=== PATIENT | female | born 1950 | race Caucasian/White ===

== ENCOUNTER 2017-06-16 22:08 | Observation (INO) | payer MEDICARE, OTHER ==
[2017-06-16] MEDS ORDERED: HYDROmorphone 0.5 MG/0.5 ML Syringe IVPUSH ONE (23:22)
--- NOTE | 2017-06-17 00:34 | EDM.PDOC ---
ED HPI GENERAL MEDICAL PROBLEM - General Chief Complaint: Lower Extremity Injury/Pain Stated Complaint: BY AMBULANCE- [facility]KLE Time Seen by Provider: 06/16/17 22:45 Source of Information: Reports: Patient, RN, RN Notes Reviewed History Limitations: Reports: No Limitations - History of Present Illness INITIAL COMMENTS - FREE TEXT/NARRATIVE: Pt presents to ER per [facility] with c/o left shoulder, left hip, and left ankle pain after 2 falls on the ice today. She states the first fall was this afternoon and she fell directly on her bottom. She states later in the day she got stuck with her car and got out of the car and slipped and fell under the car. She states she felt her ankle was turned in an odd angle and was very painful. She rates the pain of the ankle 10/10, left hip 8/10, and left shoulder 7/10. She denies hitting her head or loss of conciousness. Onset: Today, Sudden Location: Reports: Back, Upper Extremity, Left, Lower Extremity, Left Quality: Reports: Throbbing Severity: Moderate Improves with: Reports: None Worsens with: Reports: None Associated Symptoms: Reports: No Other Symptoms Left Lower Ankle Pain Score (Numeric/FACES): 9 - Related Data Allergies Allergy/AdvReac Type Severity Reaction Status Date / Time minocycline [Minocycline] Allergy Intermediate Rash Verified 05/11/17 15:53 bee pollen [Bee Pollen] Allergy Anaphylactic Verified 05/11/17 15:53 Shock hydrocodone Allergy Rash Verified 05/11/17 15:53 ibuprofen Allergy Rash Verified 05/11/17 15:53 oxycodone [Oxycodone] Allergy Rash Verified 05/11/17 15:53 Home Meds: Home Meds Esomeprazole Magnesium [Nexium] 40 mg PO BID 05/21/13 [History] Fluticasone Propionate [Flonase] 2 sprays NASBOTH DAILY 05/21/13 [History] Fosinopril Sodium 10 mg PO DAILY 05/21/13 [History] Furosemide 40 mg PO DAILY 05/21/13 [History] Levothyroxine Sodium 150 mcg PO DAILY 05/21/13 [History] Sucralfate [Carafate] 1 gm PO TID 05/21/13 [History] Temazepam [Restoril] 15 mg PO BEDTIME PRN 05/21/13 [History] atorvaSTATin Calcium [Atorvastatin Calcium] 40 mg PO DAILY 05/21/13 [History] metFORMIN [Glucophage] 1,000 mg PO BIDM 05/21/13 [History] traZODone HCl [Trazodone HCl] 250 mg PO BEDTIME 05/21/13 [History] predniSONE 5 mg PO DAILY 02/28/15 [History] traMADol HCl [Tramadol HCl] 50 - 100 mg PO Q6H PRN 07/17/15 [History] Cholecalciferol (Vitamin D3) [Vitamin D3] 10,000 unit PO DAILY 07/18/15 [History ] Calcium Carbonate [Calcium] 500 mg PO BID 01/27/16 [History] DULoxetine HCl [Duloxetine HCl] 60 mg PO BID 01/27/16 [History] buPROPion HCl [Wellbutrin Xl] 300 mg PO DAILY 01/27/16 [History] Gabapentin [Neurontin] 600 mg PO QID 05/26/16 [History] Albuterol Sulfate [Proair Hfa] 1 - 2 puff INH Q4H PRN 05/11/17 [History] Magnesium Oxide 500 mg PO BID 05/11/17 [History] Torsemide [Torsemide] 20 mg PO DAILY 05/11/17 [History] Insulin Isophane NPH, Human [NovoLIN N] 10 units SQ BID 06/16/17 [History] Losartan [Cozaar] 25 mg PO DAILY 06/16/17 [History] Past Medical History - Past Health History Medical/Surgical History: Denies Medical/Surgical History HEENT History: Reports: Allergic Rhinitis Cardiovascular History: Reports: High Cholesterol, Hypertension Respiratory History: Reports: Asthma Gastrointestinal History: Reports: Other (See Below) Other Gastrointestinal History: gastroparesis Genitourinary History: Reports: Urinary Incontinence Musculoskeletal History: Reports: Arthritis, Osteoporosis, RA Psychiatric History: Reports: Depression Endocrine/Metabolic History: Reports: Diabetes, Type II, Hypoparathyroidism Hematologic History: Reports: Other (See Below) Other Hematologic History: vit d deficency - Infectious Disease History Infectious Disease History: Reports: MRSA - Past Surgical History Neurological Surgical History: Reports: Other (See Below) Social & Family History - Family History Family Medical History: Noncontributory - Tobacco Use Smoking Status *Q: Never Smoker Second Hand Smoke Exposure: No - Caffeine Use Caffeine Use: Reports: Tea - Alcohol Use Days Per Week of Alcohol Use: 0 - Recreational Drug Use Recreational Drug Use: No Drug Use in Last 12 Months: No Review of Systems - Review of Systems Review Of Systems: ROS reveals no pertinent complaints other than HPI. ED EXAM, GENERAL - Physical Exam Exam: See Below Exam Limited By: No Limitations General Appearance: Alert, WD/WN, Moderate Distress Eye Exam: Bilateral Eye: EOMI, Normal Inspection, PERRL Ears: Normal External Exam, Hearing Grossly Normal Nose: Normal Inspection Throat/Mouth: Normal Inspection, Normal Voice, No Airway Compromise Head: Atraumatic, Normocephalic Neck: Normal Inspection, Supple, Non-Tender, Full Range of Motion Respiratory/Chest: No Respiratory Distress, Lungs Clear, Normal Breath Sounds, No Accessory Muscle Use, Chest Non-Tender Cardiovascular: Normal Peripheral Pulses, Regular Rate, Rhythm, No Gallop, No JVD, No Murmur, No Rub Peripheral Pulses: 2+: Radial (L), Radial (R), Dorsalis Pedis (L), Dorsalis Pedis (R) GI/Abdominal: Normal Bowel Sounds, Soft, Non-Tender, No Organomegaly, No Distention, No Abnormal Bruit, No Mass (Female) Exam: Deferred Rectal (Female) Exam: Deferred Back Exam: Normal Inspection, Full Range of Motion Extremities: Normal Inspection, Leg Pain (left), Limited Range of Motion (left shoulder, left leg). No: No Pedal Edema (mild pedal edema, significant lymph edema bilaterally) Neurological: Alert, Oriented, CN II-XII Intact, Normal Cognition, Normal Reflexes, No Motor/Sensory Deficits Psychiatric: Normal Affect, Normal Mood Skin Exam: Warm, Dry, Intact, Normal Color, No Rash Lymphatic: No Adenopathy Course - Vital Signs Last Recorded V/S: Last Vital Signs Temp 98.6 F 06/16/17 22:23 Pulse 62 06/16/17 22:23 Resp 16 06/16/17 22:23 BP 145/64 H 06/16/17 22:23 Pulse Ox 99 06/16/17 22:23 - Orders/Labs/Meds Meds: Medications Discontinued Medications Generic Name Dose Route Start Last Admin Trade Name Freq PRN Reason Stop Dose Admin Hydromorphone HCl 0.5 mg 06/16/17 23:22 06/17/17 00:19 Dilaudid IVPUSH 06/16/17 23:23 0.5 mg ONETIME ONE Administration - Radiology Interpretation Free Text/Narrative:: Left ankle: Probable nondisplaced fracture of the distal fibula. Ankle mortise is in good alignment Left hip with pelvis: Trochanteric bursitis left hip, no sign of fracture or dislocation Left shoulder: Normal left shoulder x-rays See rad reports Departure - Departure Time of Disposition: 00:39 Disposition: Admitted As Inpatient 65 Condition: Fair Clinical Impression: Bursitis of left hip Qualifiers: Hip bursitis location: trochanteric bursitis Qualified Code(s): M70.62 - Trochanteric bursitis, left hip Fracture of left fibula Qualifiers: Encounter type: initial encounter Fibula location: distal Fracture type: closed Fracture morphology: unspecified fracture morphology Qualified Code(s): S82.832A - Other fracture of upper and lower end of left fibula, initial encounter for closed fracture Fall Qualifiers: Encounter type: initial encounter Qualified Code(s): W19.XXXA - Unspecified fall, initial encounter - Discharge Information Forms: ED Department Discharge
[2017-06-17] MEDS ORDERED: HYDROmorphone 0.5 MG/0.5 ML Syringe IVPUSH PRN (00:50)
[2017-06-17] MEDS ORDERED: Albuterol 6.7 GM Inhaler INH PRN (00:51)
[2017-06-17] MEDS ORDERED: Temazepam 15 MG Cap PO PRN (00:52)
[2017-06-17] MEDS ORDERED: Sodium Chloride 0.9% 10 ML Syringe FLUSH PRN (01:02)
--- NOTE | 2017-06-17 01:02 | PCM.HP ---
H&P History of Present Illness - General Date of Service: 06/17/17 Source of Information: Patient - History of Present Illness Initial Comments - Free Text/Narative: 66-year-old lady with a history of diabetes, hypertension, polymyalgia rheumatica. She has chronic pain on the multiple medications. The patient fell twice today. Appear that she suffered an left distal fibular fracture. She has moderate to severe pain in the left distal leg. This is since the fall. Worse with movement and touch. No associated additional swelling although she has chronic lower extremity swelling. The falling episodes appeared that they have been purely accident. No apparent loss of consciousness. Left Lower Ankle Pain Score (Numeric/FACES): 9 - Related Data Allergies/Adverse Reactions: Allergies Allergy/AdvReac Type Severity Reaction Status Date / Time minocycline [Minocycline] Allergy Intermediate Rash Verified 05/11/17 15:53 bee pollen [Bee Pollen] Allergy Anaphylactic Verified 05/11/17 15:53 Shock hydrocodone Allergy Rash Verified 05/11/17 15:53 ibuprofen Allergy Rash Verified 05/11/17 15:53 oxycodone [Oxycodone] Allergy Rash Verified 05/11/17 15:53 Home Medications: Home Meds Esomeprazole Magnesium [Nexium] 40 mg PO BID 05/21/13 [History] Fluticasone Propionate [Flonase] 2 sprays NASBOTH DAILY 05/21/13 [History] Fosinopril Sodium 10 mg PO DAILY 05/21/13 [History] Furosemide 40 mg PO DAILY 05/21/13 [History] Levothyroxine Sodium 150 mcg PO DAILY 05/21/13 [History] Sucralfate [Carafate] 1 gm PO TID 05/21/13 [History] Temazepam [Restoril] 15 mg PO BEDTIME PRN 05/21/13 [History] atorvaSTATin Calcium [Atorvastatin Calcium] 40 mg PO DAILY 05/21/13 [History] metFORMIN [Glucophage] 1,000 mg PO BIDM 05/21/13 [History] traZODone HCl [Trazodone HCl] 250 mg PO BEDTIME 05/21/13 [History] predniSONE 5 mg PO DAILY 02/28/15 [History] traMADol HCl [Tramadol HCl] 50 - 100 mg PO Q6H PRN 07/17/15 [History] Cholecalciferol (Vitamin D3) [Vitamin D3] 10,000 unit PO DAILY 07/18/15 [History ] Calcium Carbonate [Calcium] 500 mg PO BID 01/27/16 [History] DULoxetine HCl [Duloxetine HCl] 60 mg PO BID 01/27/16 [History] buPROPion HCl [Wellbutrin Xl] 300 mg PO DAILY 01/27/16 [History] Gabapentin [Neurontin] 600 mg PO QID 05/26/16 [History] Albuterol Sulfate [Proair Hfa] 1 - 2 puff INH Q4H PRN 05/11/17 [History] Magnesium Oxide 500 mg PO BID 05/11/17 [History] Torsemide [Torsemide] 20 mg PO DAILY 05/11/17 [History] Insulin Isophane NPH, Human [NovoLIN N] 10 units SQ BID 06/16/17 [History] Losartan [Cozaar] 25 mg PO DAILY 06/16/17 [History] Past Medical History - Past Health History Medical/Surgical History: Denies Medical/Surgical History HEENT History: Reports: Allergic Rhinitis Cardiovascular History: Reports: High Cholesterol, Hypertension Respiratory History: Reports: Asthma Gastrointestinal History: Reports: Other (See Below) Other Gastrointestinal History: gastroparesis Genitourinary History: Reports: Urinary Incontinence Musculoskeletal History: Reports: Arthritis, Osteoporosis, RA Psychiatric History: Reports: Depression Endocrine/Metabolic History: Reports: Diabetes, Type II, Hypoparathyroidism Hematologic History: Reports: Other (See Below) Other Hematologic History: vit d deficency - Infectious Disease History Infectious Disease History: Reports: MRSA - Past Surgical History Neurological Surgical History: Reports: Other (See Below) Social & Family History - Family History Family Medical History: Noncontributory - Tobacco Use Smoking Status *Q: Never Smoker Second Hand Smoke Exposure: No - Caffeine Use Caffeine Use: Reports: Tea - Alcohol Use Days Per Week of Alcohol Use: 0 - Recreational Drug Use Recreational Drug Use: No Drug Use in Last 12 Months: No H&P Review of Systems - Review of Systems: Review Of Systems: See Below General: Denies: Fever, Chills Pulmonary: Denies: Shortness of Breath Cardiovascular: Denies: Chest Pain Gastrointestinal: Denies: Abdominal Pain, Nausea Exam - Exam Exam: See Below - Vital Signs Vital Signs: Last Vital Signs Temp 37.0 C 06/16/17 22:23 Pulse 62 06/16/17 22:23 Resp 16 03/08/18 22:23 BP 145/64 H 06/16/17 22:23 Pulse Ox 99 06/16/17 22:23 Weight: 86.183 kg - Exam General: Alert, Oriented Neck: Supple Lungs: Clear to Auscultation, Normal Respiratory Effort Cardiovascular: Regular Rate, Regular Rhythm GI/Abdominal Exam: Normal Bowel Sounds, Soft, Non-Tender Extremities: Pedal Edema (Trace bilateral), Other (Left lower extremity bandaged ) *Q Meaningful Use (ADM) - VTE *Q VTE Criteria *Q: - Stroke *Q Stroke Criteria *Q: - AMI *Q AMI Criteria *Q: - Problem List (1) Fracture of left fibula SNOMED Code(s): 71073900 ICD Code: S82.402A - UNSP FRACTURE OF SHAFT OF LEFT FIBULA, INIT FOR CLOS FX Status: Acute Current Visit: Yes Qualifiers: Encounter type: initial encounter Fibula location: distal Fracture type: closed Fracture morphology: unspecified fracture morphology Qualified Code(s ): S82.832A - Other fracture of upper and lower end of left fibula, initial encounter for closed fracture (2) Diabetes mellitus type 2 SNOMED Code(s): 59595279 ICD Code: E11.9 - TYPE 2 DIABETES MELLITUS WITHOUT COMPLICATIONS Status: Chronic Current Visit: No (3) Hyperlipidemia SNOMED Code(s): 80668484 ICD Code: E78.5 - HYPERLIPIDEMIA, UNSPECIFIED Status: Chronic Current Visit: No (4) Hypothyroidism SNOMED Code(s): 99419473 ICD Code: E03.9 - HYPOTHYROIDISM, UNSPECIFIED Status: Chronic Current Visit: No (5) Polymyalgia rheumatica SNOMED Code(s): 96576080 ICD Code: M35.3 - POLYMYALGIA RHEUMATICA Status: Chronic Current Visit: No Problem List Initiated/Reviewed/Updated: Yes Orders Last 24hrs: Active Orders 24 hr Category Date Time Status Glucose [Blood Glucose Check, Bedside] [RC] QIDACANDBED Care 06/17/17 00:54 Ordered BASIC METABOLIC PANEL,BMP [CHEM] AM Lab 06/17/17 05:11 Ordered BASIC METABOLIC PANEL,BMP [CHEM] AM Lab 06/18/17 05:11 Ordered CBC WITH AUTO DIFF [HEME] AM Lab 06/17/17 05:11 Ordered CBC WITH AUTO DIFF [HEME] AM Lab 06/18/17 05:11 Ordered Albuterol [Proventil HFA] Med 06/17/17 00:51 Ordered 2 puff INH Q4H PRN DULoxetine HCl [Duloxetine HCl] Med 06/17/17 09:00 Ordered 60 mg PO BID Fluticasone Propionate [Flonase] Med 06/17/17 09:00 Ordered 2 sprays NASBOTH DAILY Fosinopril Sodium [Fosinopril Sodium] Med 06/17/17 09:00 Ordered 10 mg PO DAILY Furosemide [Lasix] Med 06/17/17 09:00 Ordered 40 mg PO DAILY Gabapentin [Neurontin] Med 06/17/17 09:00 Ordered 600 mg PO QID HYDROmorphone [Dilaudid] Med 06/17/17 00:50 Ordered 0.5 mg IVPUSH Q4H PRN Insulin Aspart [NovoLOG] Med 06/17/17 08:00 Ordered See Protocol SUBCUT TIDAC Insulin Isophane NPH, Human [NovoLIN N] Med 06/17/17 09:00 Ordered 10 unit SUBCUT BID Levothyroxine Med 06/17/17 09:00 Ordered 150 mcg PO DAILY Losartan [Cozaar] Med 06/17/17 09:00 Ordered 25 mg PO DAILY Magnesium Oxide [Magnesium Oxide] Med 06/17/17 09:00 Ordered 500 mg PO BID Sucralfate [Carafate] Med 06/17/17 09:00 Ordered 1 gm PO TID Temazepam [Restoril] Med 06/17/17 00:52 Ordered 15 mg PO BEDTIME PRN atorvaSTATin [Lipitor] Med 06/17/17 09:00 Ordered 40 mg PO DAILY buPROPion HCl [Wellbutrin Xl] Med 06/17/17 09:00 Ordered 300 mg PO DAILY predniSONE Med 06/17/17 09:00 Ordered 5 mg PO DAILY traMADol [Ultram] Med 06/17/17 00:50 Ordered 50 mg PO Q4H PRN Medication Orders Albuterol (Proventil Hfa) gm INH Q4H PRN PRN Reason: Dyspnea Atorvastatin Calcium (Lipitor) 40 mg PO DAILY AKIRA Fluticasone Propionate (Flonase) gm NASBOTH DAILY AKIRA Furosemide (Lasix) 40 mg PO DAILY AKIRA Gabapentin (Neurontin) 600 mg PO QID AKIRA Hydromorphone HCl (Dilaudid) 0.5 mg IVPUSH Q4H PRN PRN Reason: severe pain Insulin Aspart (Novolog) 0 unit SUBCUT TIDAC AKIRA PRN Reason: Protocol Insulin Human NPH (Novolin N) 10 unit SUBCUT BID AKIRA Levothyroxine Sodium (Levothyroxine) 150 mcg PO DAILY AKIRA Losartan Potassium (Cozaar) 25 mg PO DAILY AKIRA Non-Formulary Medication (Bupropion Hcl [Wellbutrin Xl]) 300 mg PO DAILY AKIRA Non-Formulary Medication (Duloxetine Hcl [Duloxetine Hcl]) 60 mg PO BID AKIRA Non-Formulary Medication (Fosinopril Sodium [Fosinopril Sodium]) 10 mg PO DAILY AKIRA Non-Formulary Medication (Magnesium Oxide [Magnesium Oxide]) 500 mg PO BID AKIRA Prednisone (Prednisone) 5 mg PO DAILY KAIRA Sucralfate (Carafate) 1 gm PO TID AKIRA Temazepam (Restoril) 15 mg PO BEDTIME PRN PRN Reason: Insomnia Tramadol HCl (Ultram) 50 mg PO Q4H PRN PRN Reason: moderate pain Assessment/Plan Comment:: The patient is a 66-year-old lady who presented with falling. #1 left distal fibular fracture Cast has been put on in the ER Clinic follow-up with orthopedic surgery as outpatient with repeat x-rays Pain control will be difficult with a history of chronic pain, likely a significant narcotic tolerance. Will use IV Dilaudid when necessary for severe pain, tramadol for moderate pain. Continue Neurontin Consult physical therapy for evaluation for mobility #2 polymyalgia rheumatica Continue steroid #3 diabetes Treat with NPH insulin Follow blood sugars and supplement as needed Obtain basic metabolic panel #4 hypertension Continue Cozaar #5 DVT prophylaxis Started subcutaneous heparin
[2017-06-17] MEDS ORDERED: Cyclobenzaprine 10 MG Tab PO PRN (01:47)
[2017-06-17] MEDS: Gabapentin 300 MG Cap PO SCH ×3 (02:01→12:35)
[2017-06-17] MEDS: DULoxetine 30 MG Cap PO SCH ×2 (02:02→08:15)
[2017-06-17] MEDS: traMADol 50 MG Tab PO PRN ×2 (02:40→08:17)
[2017-06-17] MEDS ORDERED: Levothyroxine 150 MCG Tab PO SCH (06:00)
[2017-06-17 06:35] LABS: CHLORIDE,CL 97 mmol/L (101-111); SODIUM,NA 135 mmol/L (135-145)
[2017-06-17] MEDS: Heparin Sodium 5,000 Units/ML Vial SUBCUT SCH ×2 (08:11→14:21)
[2017-06-17] MEDS: Insulin Aspart 100 Units/ML 3 ML Pen SUBCUT SCH ×2 (08:11→12:35)
[2017-06-17] MEDS: Sucralfate 1 GM Tab PO SCH ×2 (08:15→14:21)
[2017-06-17] MEDS ORDERED: DULoxetine 30 MG Cap PO SCH (09:00)
[2017-06-17] MEDS ORDERED: Fluticasone Propionate Nasal Spray 16 GM Bottle NASBOTH SCH (09:00)
[2017-06-17] MEDS ORDERED: FOSINOPRIL SODIUM 10 MG PO SCH (09:00)
[2017-06-17] MEDS ORDERED: Furosemide 40 MG Tab PO SCH (09:00)
[2017-06-17] MEDS ORDERED: atorvaSTATin 20 MG Tab PO SCH ×2 (09:00→21:00)
[2017-06-17] MEDS ORDERED: predniSONE 5 MG Tab PO SCH (09:00)
[2017-06-17] MEDS ORDERED: Gabapentin 300 MG Cap PO SCH (09:00)
[2017-06-17] MEDS ORDERED: Insulin Isophane NPH, Human 100 Units/ML 10 ML Vial SUBCUT SCH (09:00)
[2017-06-17] MEDS ORDERED: Losartan 25 MG Tab PO SCH (09:00)
[2017-06-17] MEDS ORDERED: buPROPion 150 MG Tab.ER PO SCH (09:00)
[2017-06-17] MEDS ORDERED: Potassium Chloride 10 MEQ Tab.ER PO ONE (09:57)
[2017-06-17] MEDS ORDERED: HYDROmorphone 2 MG Tab PO PRN (10:30)
--- NOTE | 2017-06-17 10:47 | PCM.DCSUM1 ---
Discharge Summary - Hospital Course Free Text/Narrative:: The patient is a 66-year-old lady who presented with falling. #1 left distal fibular fracture Cast has been put on in the ER Clinic follow-up with orthopedic surgery as outpatient with repeat x-rays - she wanted to follow up with her surgeon from [place] - she will arrange Pain control will be difficult with a history of chronic pain, likely a significant narcotic tolerance. Will use PO Dilaudid when necessary for severe pain, Continue Neurontin use walker #2 polymyalgia rheumatica Continue steroid #3 diabetes Treat with NPH insulin, metformin #4 hypertension Continue Cozaar - Discharge Data Discharge Date: 06/17/17 Discharge Disposition: Home, Self-Care 01 Condition: Good - Discharge Diagnosis/Problem(s) (1) Fracture of left fibula SNOMED Code(s): 22797949 ICD Code: S82.402A - UNSP FRACTURE OF SHAFT OF LEFT FIBULA, INIT FOR CLOS FX Status: Acute Current Visit: Yes Qualifiers: Encounter type: initial encounter Fibula location: distal Fracture type: closed Fracture morphology: unspecified fracture morphology Qualified Code(s ): S82.832A - Other fracture of upper and lower end of left fibula, initial encounter for closed fracture (2) Diabetes mellitus type 2 SNOMED Code(s): 19999886 ICD Code: E11.9 - TYPE 2 DIABETES MELLITUS WITHOUT COMPLICATIONS Status: Chronic Current Visit: No (3) Hyperlipidemia SNOMED Code(s): 35435037 ICD Code: E78.5 - HYPERLIPIDEMIA, UNSPECIFIED Status: Chronic Current Visit: No (4) Hypothyroidism SNOMED Code(s): 86287765 ICD Code: E03.9 - HYPOTHYROIDISM, UNSPECIFIED Status: Chronic Current Visit: No (5) Polymyalgia rheumatica SNOMED Code(s): 17924283 ICD Code: M35.3 - POLYMYALGIA RHEUMATICA Status: Chronic Current Visit: No - Patient Instructions Diet: Usual Diet as Tolerated Activity: Partial Weight Bearing (left foot) - Discharge Plan Prescriptions/Med Rec: HYDROmorphone [Dilaudid] 1 mg PO Q6H PRN #12 tablet PRN Reason: severe pain Home Medications: Home Meds Fluticasone Propionate [Flonase] 2 sprays NASBOTH DAILY 05/21/13 [History] Furosemide 40 mg PO DAILY 05/21/13 [History] Levothyroxine Sodium 150 mcg PO DAILY 05/21/13 [History] Sucralfate [Carafate] 1 gm PO TIDAC 05/21/13 [History] Temazepam [Restoril] 15 mg PO BEDTIME PRN 05/21/13 [History] atorvaSTATin Calcium [Atorvastatin Calcium] 40 mg PO DAILY 05/21/13 [History] metFORMIN [Glucophage] 1,000 mg PO BIDM 05/21/13 [History] traZODone HCl [Trazodone HCl] 250 mg PO BEDTIME 05/21/13 [History] predniSONE 5 mg PO DAILY 02/28/15 [History] Cholecalciferol (Vitamin D3) [Vitamin D3] 5,000 unit PO BID 07/18/15 [History] Calcium Carbonate [Calcium] 500 mg PO BID 01/27/16 [History] DULoxetine HCl [Duloxetine HCl] 60 mg PO BID 01/27/16 [History] buPROPion HCl [Wellbutrin Xl] 450 mg PO DAILY 01/27/16 [History] Gabapentin [Neurontin] 600 mg PO QID 05/26/16 [History] Albuterol Sulfate [Proair Hfa] 1 - 2 puff INH Q4H PRN 05/11/17 [History] Magnesium Oxide 500 mg PO BID 05/11/17 [History] Insulin Isophane NPH, Human [NovoLIN N] 10 units SQ BID 06/16/17 [History] Losartan [Cozaar] 25 mg PO DAILY 06/16/17 [History] HYDROmorphone [Dilaudid] 1 mg PO Q6H PRN #12 tablet 06/17/17 [Rx] Forms: ED Department Discharge Referrals: PCP,Unobtain [Primary Care Provider] - (in 2-3 days for pain control) - General Info Date of Service: 06/17/17 Functional Status: Reports: Ambulating (with walker) - Review of Systems General: Denies: Weakness Pulmonary: Denies: Shortness of Breath Cardiovascular: Denies: Chest Pain Gastrointestinal: Denies: Abdominal Pain - Patient Data Vitals - Most Recent: Last Vital Signs Temp 37.0 C 06/17/17 08:00 Pulse 69 06/17/17 08:00 Resp 16 06/17/17 08:00 BP 116/48 L 03/09/18 08:16 Pulse Ox 95 06/17/17 08:00 Weight - Most Recent: 87.453 kg I&O - Last 24 hours: Intake & Output 06/16/17 06/17/17 06/17/17 22:59 06:59 14:59 Intake Total 150 400 Output Total 400 Balance -250 400 Lab Results - Last 24 hrs: Laboratory Results - last 24 hr 06/17/17 06/17/17 06/17/17 Range/Units 01:19 05:45 05:45 WBC 10.9 H (5.0-10.0) 10^3/uL RBC 4.21 (4.2-5.4) 10^6/uL Hgb 11.0 L (12.0-16.0) g/dL Hct 34.4 L (37.0-47.0) % MCV 81.7 (80-100) fL MCH 26.1 L (27.0-34.0) pg MCHC 32.0 L (33.0-35.0) g/dL Plt Count 243 (150-450) 10^3/uL Neut % (Auto) 52.3 (42.2-75.2) % Lymph % (Auto) 33.5 (20.5-50.1) % [place] % (Auto) 11.6 H (2-8) % Eos % (Auto) 2.3 (1.0-3.0) % Baso % (Auto) 0.3 (0.0-1.0) % Add Manual Diff Yes Neutrophils % (Manual) 55 (42-75) % Lymphocytes % (Manual) 36 (20-50) % Monocytes % (Manual) 8 (2-8) % Eosinophils % (Manual) 1 (1-3) % Sodium 135 (135-145) mmol/L Potassium 3.5 L (3.6-5.0) mmol/L Chloride 97 L (101-111) mmol/L Carbon Dioxide 31.0 (21.0-31.0) mmol/L Anion Gap 10.5 BUN 14 (7-18) mg/dL Creatinine 0.7 (0.6-1.3) mg/dL Est Cr Clr Drug Dosing 61.68 mL/min Estimated GFR (MDRD) > 60 Glucose 122 H (74-105) mg/dL POC Glucose 122 H (70-105) mg/dl Calcium 8.6 (8.4-10.2) mg/dl 06/17/17 Range/Units 07:58 WBC (5.0-10.0) 10^3/uL RBC (4.2-5.4) 10^6/uL Hgb (12.0-16.0) g/dL Hct (37.0-47.0) % MCV (80-100) fL MCH (27.0-34.0) pg MCHC (33.0-35.0) g/dL Plt Count (150-450) 10^3/uL Neut % (Auto) (42.2-75.2) % Lymph % (Auto) (20.5-50.1) % [place] % (Auto) (2-8) % Eos % (Auto) (1.0-3.0) % Baso % (Auto) (0.0-1.0) % Add Manual Diff Neutrophils % (Manual) (42-75) % Lymphocytes % (Manual) (20-50) % Monocytes % (Manual) (2-8) % Eosinophils % (Manual) (1-3) % Sodium (135-145) mmol/L Potassium (3.6-5.0) mmol/L Chloride (101-111) mmol/L Carbon Dioxide (21.0-31.0) mmol/L Anion Gap BUN (7-18) mg/dL Creatinine (0.6-1.3) mg/dL Est Cr Clr Drug Dosing mL/min Estimated GFR (MDRD) Glucose (74-105) mg/dL POC Glucose 122 H (70-105) mg/dl Calcium (8.4-10.2) mg/dl Med Orders - Current: Current Medications Albuterol (Proventil Hfa) 0 gm INH Q4H PRN PRN Reason: Dyspnea Atorvastatin Calcium (Lipitor) 40 mg PO BEDTIME AKIRA Bupropion HCl (Wellbutrin Xl) 300 mg PO DAILY AKIRA Last Admin: 06/17/17 08:15 Dose: 300 mg Cyclobenzaprine HCl (Flexeril) 10 mg PO BEDTIME PRN PRN Reason: Pain Last Admin: 06/17/17 02:41 Dose: 10 mg Duloxetine HCl (Cymbalta) 60 mg PO BID [facility] Last Admin: 06/17/17 08:15 Dose: 60 mg Fluticasone Propionate (Flonase) 0 gm NASBOTH DAILY [facility] Last Admin: 06/17/17 08:16 Dose: 2 spray Furosemide (Lasix) 40 mg PO DAILY [facility] Last Admin: 06/17/17 08:15 Dose: 40 mg Gabapentin (Neurontin) 600 mg PO QID [facility] Last Admin: 06/17/17 08:15 Dose: 600 mg Heparin Sodium (Porcine) (Heparin Sodium) 5,000 units SUBCUT Q8HR [facility] Last Admin: 06/17/17 08:11 Dose: Not Given Hydromorphone HCl (Dilaudid) 0.5 mg IVPUSH Q4H PRN PRN Reason: severe pain Last Admin: 06/17/17 04:25 Dose: 0.5 mg Hydromorphone HCl (Dilaudid) 1 mg PO Q6H PRN PRN Reason: severe pain Insulin Aspart (Novolog) 0 unit SUBCUT TIDAC [facility] PRN Reason: Protocol Last Admin: 06/17/17 08:11 Dose: Not Given Insulin Human NPH (Novolin N) 10 unit SUBCUT BID [facility] Last Admin: 06/17/17 08:14 Dose: 10 units Levothyroxine Sodium (Levothyroxine) 150 mcg PO ACBRK [facility] Last Admin: 06/17/17 06:07 Dose: 150 mcg Losartan Potassium (Cozaar) 25 mg PO DAILY [facility] Last Admin: 06/17/17 08:16 Dose: 25 mg Magnesium Oxide (Magnesium Oxide) 500 mg PO BID [facility] Last Admin: 06/17/17 08:16 Dose: 500 mg Prednisone (Prednisone) 5 mg PO DAILY [facility] Last Admin: 06/17/17 08:15 Dose: 5 mg Sodium Chloride (Saline Flush) 10 ml FLUSH ASDIRECTED PRN PRN Reason: Keep Vein Open Sucralfate (Carafate) 1 gm PO TID [facility] Last Admin: 06/17/17 08:15 Dose: 1 gm Temazepam (Restoril) 15 mg PO BEDTIME PRN PRN Reason: Insomnia Last Admin: 06/17/17 02:02 Dose: 15 mg Discontinued Medications Atorvastatin Calcium (Lipitor) 40 mg PO DAILY [facility] Duloxetine HCl (Cymbalta) 60 mg PO BID [facility] Gabapentin (Neurontin) 600 mg PO QID [facility] Hydromorphone HCl (Dilaudid) 0.5 mg IVPUSH ONETIME ONE Stop: 06/16/17 23:23 Last Admin: 06/17/17 00:19 Dose: 0.5 mg Non-Formulary Medication (Fosinopril Sodium [Fosinopril Sodium]) 10 mg PO DAILY [facility] Last Admin: 06/17/17 10:14 Dose: Not Given Potassium Chloride (Klor-Con 10) 20 meq PO ONETIME ONE Stop: 06/17/17 09:58 Tramadol HCl (Ultram) 50 mg PO Q4H PRN PRN Reason: moderate pain Last Admin: 06/17/17 08:17 Dose: 50 mg - Exam General: Reports: Alert, Oriented Neck: Reports: Supple Lungs: Reports: Clear to Auscultation, Normal Respiratory Effort Cardiovascular: Reports: Regular Rate, Regular Rhythm GI/Abdominal Exam: Normal Bowel Sounds, Soft, Non-Tender, Other (obese) Extremities: Other (left foot with boot) Neurological: Reports: No New Focal Deficit *Q Meaningful Use (DIS) - VTE *Q VTE Criteria *Q: - Stroke *Q Stroke Criteria *Q: - AMI *Q AMI Criteria *Q:
[2017-06-17 14:59] VITALS: BP 121/61
== END 2017-06-17 17:15 | disposition home or self-care (01) ==
LOC: DL.ED 22:08 → UNDOADMOB 06-17 00:45 → DL.MS 06-17 00:45 → EEVIPCON 06-17 01:02 → DL.MS 06-17 01:02
PROVIDERS: ADMIT Internal Medicine; ATTEND Internal Medicine
DX: S82.832A Other fracture of upper and lower end of left fibula, initial encounter for closed fracture (principal); I10 Essential (primary) hypertension; E11.9 Type 2 diabetes mellitus without complications; J45.909 Unspecified asthma, uncomplicated; E78.00 Pure hypercholesterolemia, unspecified; F32.9 Major depressive disorder, single episode, unspecified; E21.3 Hyperparathyroidism, unspecified; E55.9 Vitamin D deficiency, unspecified; Z88.1 Allergy status to other antibiotic agents; Z88.8 Allergy status to other drugs, medicaments and biological substances; Z91.030 Bee allergy status; Z79.899 Other long term (current) drug therapy; Z79.4 Long term (current) use of insulin; W00.0XXA Fall on same level due to ice and snow, initial encounter
CPT/HCPCS: 36415; 73030; 73502; 73610; 80048; 82962; 85025; 96374; 96376; 97162; 99284; 99285; A9270; G0378; J1170; J1815